=== PATIENT | female | born 1985 | race Caucasian/White ===

== ENCOUNTER 2017-08-25 19:38 | Emergency (ER) | payer MEDICAID ==
[2017-08-25] MEDS: SOD CHLORIDE 0.9% 1,000 ML IV (22:22)
[2017-08-25] MEDS: ONDANSETRON 4 MG INJ IV (22:23)
[2017-08-25] MEDS: morphine 4 MG/ML VIAL IV (22:23)
[2017-08-25] MEDS: IBUPROFEN 600 MG TAB PO (22:23)
[2017-08-25 22:24] LABS: ADD MAN DIFF? NO
[2017-08-25 22:25] LABS: BASOPHIL # 0.1 10^3/ul (0.0-0.1); BASOPHILS % 0.4 % (0.0-2.0); EOSINOPHILS % 0.1 % (0.0-7.0); HEMATOCRIT 41.1 % (37.0-47.0); LYMPHOCYTES # 2.4 10^3/ul (0.8-2.9); LYMPHOCYTES % 12.6 % (15.0-51.0); MEAN CORPUSCULAR HGB CONC 34.1 g/dl (32.0-37.0); MEAN CORPUSCULAR VOLUME 91.1 fl (82.0-101.0); MEAN PLATELET VOLUME 10.8 fl (7.4-10.4); MONOCYTE # 1.2 10^3/ul (0.3-0.9); MONOCYTES % 6.2 % (0.0-11.0); NEUTROPHIL # 15.2 10^3/ul (1.6-7.5); NEUTROPHILS % 80.3 % (39.0-77.0); PLATELET COUNT 306 10^3/UL (140-415); RED BLOOD COUNT 4.51 10^6/ul (4.20-5.40); RED CELL DISTRIBUTION WIDTH 12.7 % (11.5-14.5)
[2017-08-25 22:25] LABS: WHITE BLOOD COUNT 18.9 10^3/ul (4.8-10.8)
[2017-08-25] MEDS: KETOROLAC 30 MG INJ IV (22:34)
[2017-08-25 22:46] LABS: ALANINE AMINOTRANSFERASE 79 IU/L (13-69); ALBUMIN 4.2 g/dl (3.3-4.9); ALBUMIN/GLOBULIN RATIO 1.07; ALKALINE PHOSPHATASE 110 IU/L (42-121); ANION GAP 15 (8-16); ASPARTATE AMINO TRANSFERASE 74 IU/L (15-46); BILIRUBIN,INDIRECT 0.4 mg/dl (0-1.1); BILIRUBIN,TOTAL 0.4 mg/dl (0.2-1.3); BLOOD UREA NITROGEN 12 mg/dl (7-20); CALCIUM 8.9 mg/dl (8.4-10.2); CARBON DIOXIDE 28 mmol/L (21-31); CHLORIDE 103 mmol/L (97-110); CREATININE 0.77 mg/dl (0.44-1.00); GLUCOSE 114 mg/dl (70-220); LIPASE 36 U/L (23-300); POTASSIUM 3.6 mmol/L (3.5-5.1); SODIUM 142 mmol/L (135-144); TOTAL PROTEIN 8.1 g/dl (6.1-8.1)
[2017-08-25 23:12] LABS: ADD UMIC YES; UR ASCORBIC ACID NEGATIVE (NEGATIVE); UR BACTERIA FEW /HPF (NONE SEEN); UR BILIRUBIN (Dip) NEGATIVE (NEGATIVE); UR BLOOD (Dip) 2+ mg/dL (NEGATIVE); UR CLARITY SLIGHTLY CLOUDY (CLEAR); UR COLOR AMBER (YELLOW); UR GLUCOSE (Dip) NEGATIVE (NEGATIVE); UR KETONES (Dip) NEGATIVE (NEGATIVE); UR LEUKOCYTE ESTERASE (Dip) 2+ Leu/ul (NEGATIVE); UR MUCUS FEW /HPF (NONE SEEN); UR NITRITE (Dip) NEGATIVE (NEGATIVE); UR RBC 12 /HPF (0-5); UR SPECIFIC GRAVITY (Dip) 1.031 (1.003-1.030); UR SQUAMOUS EPITHELIAL CELL FEW /HPF (FEW); UR TOTAL PROTEIN (Dip) 1+ mg/dl (NEGATIVE); UR UROBILINOGEN (Dip) 1+ mg/dL (NEGATIVE); UR WBC 24 /HPF (0-5)
== END 2017-08-26 00:58 | disposition home or self-care (01) ==
LOC: FTE 08-26 00:58
DX: K80.20 Calculus of gallbladder without cholecystitis without obstruction (principal); R10.2 Pelvic and perineal pain
CPT/HCPCS: 36415; 74176; 76705; 80053; 81001; 81025; 83690; 85025; 96374; 96375; 99285-25

== ENCOUNTER 2017-09-19 22:28 | Emergency (ER) | payer MEDICAID ==
[2017-09-20 01:36] LABS: URINE BLOOD (Dip) POC Trace-intact (NEGATIVE); URINE GLUCOSE (Dip) POC Negative (NEGATIVE); URINE KETONES (Dip) POC 1+ (NEGATIVE); URINE LEUKOCYTE EST (Dip) POC Negative (NEGATIVE); URINE NITRITE (Dip) POC Negative (NEGATIVE); URINE TOTAL PROTEIN POC 1+ (NEGATIVE)
[2017-09-20] MEDS: LIDOCAINE/MYLANTA 40 ML BTL PO (01:43)
[2017-09-20] MEDS: RANITIDINE 150 MG TAB PO (01:56)
== END 2017-09-20 04:15 | disposition home or self-care (01) ==
LOC: FTE 22:28
DX: K80.20 Calculus of gallbladder without cholecystitis without obstruction (principal); R40.2412 Glasgow coma scale score 13-15, at arrival to emergency department
CPT/HCPCS: 76705; 81003; 81025; 99284-25